=== PATIENT | male | born 1945 | race African-American/Black ===

== ENCOUNTER 2017-11-23 09:07 | Inpatient (IN) | payer OTHER, MEDICAID ==
[~2017-11-23] VITALS: Ht 182.9 cm; Wt 64.1 kg
[2017-11-23] MEDS ORDERED: ASPirin 81 mg TAB PO ONE (09:30)
[2017-11-23 09:57] LABS: Basophils # (auto) 0 uL; Basophils % (auto) 0.4 % (0.0-2.0); Eosinophils # (auto) 0 uL; Eosinophils % (auto) 0.3 % (0.0-7.0); Hematocrit 40.5 % (41.0-53.0); Hemoglobin 13.4 g/dL (13.5-17.5); Lymphocytes # (auto) 1.1 uL; Lymphocytes % (auto) 26.5 % (10.0-50.0); Mean Corpuscular Hemoglobin 27.1 pg (28.0-32.0); Mean Corpuscular Hgb Conc. 33.1 g/dL (32.0-36.0); Mean Corpuscular Volume 81.8 fL (80.0-100.0); Monocytes # (auto) 0.4 uL; Monocytes % (auto) 10.4 % (0.0-12.0); Neutrophils # (auto) 2.7 uL; Neutrophils % (auto) 62.4 % (37.0-80.0); Nucleated Red Blood Cells % 0.1 %; Platelet Count (auto) 364 10^3/uL (140-450); Red Blood Cells 4.95 10^6/uL (4.5-5.90); Red Cell Distribution Width 15.3 % (11.8-14.3); White Blood Cell 4.3 10^3/uL (4.4-10.8)
[2017-11-23 10:20] LABS: Alanine Aminotransferase 17 U/L (16-61); Albumin 3.5 g/dL (3.4-5.0); Alkaline Phosphatase 106 U/L (45-117); Anion Gap 9 (5-15); Aspartate Aminotransferase 14 U/L (15-37); Bilirubin, Total 0.3 mg/dL (0.2-1.0); Blood Urea Nitrogen 12 mg/dL (7-18); Calcium 9.2 mg/dL (8.5-10.1); Carbon Dioxide 25 mmol/L (21-32); Chloride 106 mmol/L (98-107); GFR African American 123 mL/min; GFR Non-African American 102 mL/min; Glucose 154 mg/dL (74-106); Potassium 3.5 mmol/L (3.5-5.1); Sodium 140 mmol/L (136-145); Total Protein 7.8 g/dL (6.4-8.2)
[2017-11-23] MEDS ORDERED: ONDANSETRON HCL 4 MG/2 ML VIAL IV PRN (12:45)
[2017-11-23] MEDS ORDERED: HYDROcodone-ACET 5/325MG TAB PO PRN (12:45)
[2017-11-23] MEDS ORDERED: NITROGLYCERIN 0.4 MG SL TAB SL PRN (12:45)
[2017-11-23] MEDS ORDERED: NITROGLYCERIN 0.2MG/HR TOPICAL PATCH TD ONE (12:45)
[2017-11-23] MEDS ORDERED: MORPHINE SULFATE 4 MG/ML SYR/VIAL IV PRN ×2 (12:45)
[2017-11-23] MEDS ORDERED: NIFE60TA59 PO (13:03)
[2017-11-23] MEDS ORDERED: ENA10T PO (13:03)
[2017-11-23] MEDS ORDERED: BICA50TA7 PO (13:03)
[2017-11-23 13:57] LABS: Cholesterol 145 mg/dL (< 200); HDL Cholesterol 77 mg/dL (40-59); LDL Cholesterol 67 mg/dL (< 100); Triglycerides 68 mg/dL (< 150)
[2017-11-23] MEDS ORDERED: OPTISON 3ml Vial for INJ IV ONE (16:18)
[2017-11-23 16:39] VITALS: BP 128/85
[2017-11-23 22:00] VITALS: BP 105/67
[2017-11-23] MEDS: ATORVASTATIN 20 MG TAB PO SCH (22:00)
[2017-11-23] MEDS: METOPROLOL TARTRATE 25 MG TAB PO SCH (22:00)
[2017-11-24 05:18] VITALS: BP_SYST 120; BP_SYST 121; BP_DIAS 72; BP_DIAS 85
[2017-11-24 05:52] LABS: Basophils # (auto) 0 uL; Basophils % (auto) 0.7 % (0.0-2.0); Eosinophils # (auto) 0 uL; Eosinophils % (auto) 0.7 % (0.0-7.0); Hematocrit 39.6 % (41.0-53.0); Hemoglobin 13.4 g/dL (13.5-17.5); Lymphocytes # (auto) 1.2 uL; Lymphocytes % (auto) 33.3 % (10.0-50.0); Mean Corpuscular Hemoglobin 27.7 pg (28.0-32.0); Mean Corpuscular Hgb Conc. 33.7 g/dL (32.0-36.0); Mean Corpuscular Volume 82.2 fL (80.0-100.0); Monocytes # (auto) 0.4 uL; Monocytes % (auto) 12.4 % (0.0-12.0); Neutrophils # (auto) 1.9 uL; Neutrophils % (auto) 52.9 % (37.0-80.0); Nucleated Red Blood Cells % 0.1 %; Platelet Count (auto) 353 10^3/uL (140-450); Red Blood Cells 4.82 10^6/uL (4.5-5.90); Red Cell Distribution Width 15.6 % (11.8-14.3); White Blood Cell 3.6 10^3/uL (4.4-10.8)
[2017-11-24 06:27] LABS: BUN/Creatinine Ratio 16.7; Calcium 9.6 mg/dL (8.5-10.1); Potassium 3.6 mmol/L (3.5-5.1)
[2017-11-24 07:21] VITALS: BP 118/82
[2017-11-24] MEDS ORDERED: NITROGLYCERIN 0.2MG/HR TOPICAL PATCH TD SCH (10:00)
[2017-11-24] MEDS: ASPirin 81 mg TAB PO SCH (10:08)
[2017-11-24] MEDS: METOPROLOL TARTRATE 25 MG TAB PO SCH (10:08)
[2017-11-24] MEDS: ENALAPRIL MALEATE 2.5 MG TAB PO SCH (10:10)
[2017-11-24 11:30] VITALS: BP 163/90
[2017-11-24] MEDS ORDERED: NIFEdipine ER 30 MG TAB PO ONE (13:15)
[2017-11-24 16:28] VITALS: BP 111/74
[2017-11-24 17:00] VITALS: BP 143/78
[2017-11-24 22:00] VITALS: BP 124/76
[2017-11-24] MEDS: ATORVASTATIN 20 MG TAB PO SCH (22:24)
[2017-11-25 05:21] VITALS: BP 103/70
[2017-11-25 09:00] VITALS: BP 109/78
[2017-11-25] MEDS: ASPirin 81 mg TAB PO SCH (09:47)
[2017-11-25] MEDS ORDERED: NIFEdipine ER 30 MG TAB PO SCH (10:00)
[2017-11-25] MEDS: ENALAPRIL MALEATE 2.5 MG TAB PO SCH (10:00)
[2017-11-25 13:00] VITALS: BP 123/81
[2017-11-25 16:50] VITALS: BP 116/77
[2017-11-25 17:00] VITALS: BP 116/77
== END 2017-11-25 18:27 | disposition home or self-care (01) | DRG 313 ==
LOC: ER 09:07 → TELE 09:08 → TELE-WESTW 18:08
PROVIDERS: ADMIT Internal Medicine; ATTEND Internal Medicine
DX: R07.89 Other chest pain (principal); F12.90 Cannabis use, unspecified, uncomplicated; I10 Essential (primary) hypertension; R73.9 Hyperglycemia, unspecified; I49.3 Ventricular premature depolarization; Z82.49 Family history of ischemic heart disease and other diseases of the circulatory system; Z92.3 Personal history of irradiation; Z90.79 Acquired absence of other genital organ(s); Z85.46 Personal history of malignant neoplasm of prostate; Z95.0 Presence of cardiac pacemaker
CPT/HCPCS: 36415; 71045; 80048; 80053; 80061; 83036; 83735; 83880; 84154; 84484; 85025; 85379; 86141; 93005; 93017; 93306; Q9956

== ENCOUNTER 2020-05-03 12:27 | Inpatient (IN) | payer OTHER, MEDICAID ==
[~2020-05-03] VITALS: Ht 185.4 cm; Wt 71.2 kg
[~2020-05-03 12:27] MED LIST: BICA50TA13 PO; ENAL10TA12 PO; NIFE1TAB30 PO
[2020-05-03] MEDS ORDERED: SODIUM CHLORIDE 0.9% 1,000 ML IVB ONE (12:42)
[2020-05-03] MEDS ORDERED: MORPHINE SULFATE 4 MG/ML SYR/VIAL IV ONE (12:45)
[2020-05-03] MEDS ORDERED: ONDANSETRON HCL 4 MG/2 ML VIAL IV ONE (12:45)
[2020-05-03] MEDS ORDERED: ASPirin 81 mg TAB PO ONE (12:45)
[2020-05-03 13:53] LABS: Basophils # (auto) 0 10 ^3/uL (0-0.2); Basophils % (auto) 0.2 % (0.0-2.0); Eosinophils # (auto) 0 10 ^3/uL (0-0.8); Hematocrit 40.2 % (41.0-53.0); Hemoglobin 13.4 g/dL (13.5-17.5); Lymphocytes # (auto) 0.3 10 ^3/uL (0.4-5.4); Lymphocytes % (auto) 2.9 % (10.0-50.0); Mean Corpuscular Hemoglobin 28.3 pg (28.0-32.0); Mean Corpuscular Hgb Conc. 33.4 g/dL (32.0-36.0); Mean Corpuscular Volume 84.7 fL (80.0-100.0); Monocytes # (auto) 0.4 10 ^3/uL (0-1.3); Monocytes % (auto) 4.1 % (0.0-12.0); Neutrophils # (auto) 9.2 10 ^3/uL (1.6-8.6); Neutrophils % (auto) 92.8 % (37.0-80.0); Platelet Count (auto) 257 10^3/uL (140-450); Red Blood Cells 4.75 10^6/uL (4.5-5.90); Red Cell Distribution Width 14.8 % (11.8-14.3); White Blood Cell 9.9 10^3/uL (4.4-10.8)
[2020-05-03 14:11] LABS: Albumin 3.4 g/dL (3.4-5.0); BUN/Creatinine Ratio 16.1; Calcium 9.1 mg/dL (8.5-10.1); Potassium 3.2 mmol/L (3.5-5.1)
[2020-05-03] MEDS ORDERED: MORPHINE SULF INJ 2 MG/ML SYRINGE 1ML IV PRN ×2 (14:15→14:30)
[2020-05-03] MEDS ORDERED: NITROGLYCERIN 0.4 MG SL TAB SL PRN (14:15)
[2020-05-03 14:16] LABS: Total Protein 7.7 g/dL (6.4-8.2)
[2020-05-03] MEDS ORDERED: ACETAMINOPHEN 500 MG TAB PO PRN (14:30)
[2020-05-03] MEDS ORDERED: ONDANSETRON HCL 4 MG/2 ML VIAL IV PRN (14:30)
[2020-05-03] MEDS ORDERED: LACTULOSE 20Gm/30ML SOLN PO PRN (14:30)
[2020-05-03] MEDS ORDERED: traMADol HCL 50 MG TAB PO PRN (14:30)
[2020-05-03] MEDS ORDERED: TEMAZEPAM 15 MG CAP PO PRN (14:30)
[2020-05-03] MEDS ORDERED: ENOXAPARIN SOD 80 MG/0.8ML SYRINGE SC ONE (15:30)
[2020-05-03] MEDS: metroNIDAZOLE 500MG/100ML 100 ML IV SCH ×2 (16:35→22:31)
[2020-05-03] MEDS ORDERED: ASPI-498 PO (16:49)
[2020-05-03] MEDS ORDERED: HYDR-531 PO (16:49)
[2020-05-03] MEDS ORDERED: TIOTCAP IN (16:49)
[2020-05-03] MEDS ORDERED: ATOR20TA50 PO (16:49)
[2020-05-03] MEDS ORDERED: NAP500T PO (16:49)
--- NOTE | 2020-05-03 16:50 | NUR ---
Telemetry admit from ER [facility] SM[facility],WT admitted to Telemetry unit after SBAR received. Patient oriented to Jeremy toribio RN, unit, room, bed, and unit policies regarding patient care and visiting hours. Patient now on continuous telemetry monitoring, tele box # 29 and telemetry reading on arrival to unit is SB 57. Patient placed on bedside oxygen, weighed by bedscale and encouraged to call if they need something. All questions and concerns addressed, patient verbalized understanding. Note: Patient noted to be aaox4, pleasant and cooperative. Patient ambulatory, no c/o chest pain, nausea, vomiting or diarrhea at this time. Admission assessment done and charted. Discussed with patient plan of care, medications, treatments and safety discussed with patient and oatient verbalized understanding. Will continue to monitor patient.
[2020-05-03] MEDS ORDERED: IBUP200C95 PO (16:51)
[2020-05-03] MEDS ORDERED: MULT-928 PO (16:51)
[2020-05-03 16:58] LABS: Cholesterol 127 mg/dL (< 200)
[2020-05-03 17:01] LABS: HDL Cholesterol 82 mg/dL (40-59); LDL Cholesterol 42 mg/dL (< 100); Triglycerides 58 mg/dL (< 150)
[2020-05-03] MEDS ORDERED: CLOPIDOGREL BISULFATE 75 MG TAB PO ONE (17:15)
[2020-05-03 17:37] VITALS: BP 127/95
[2020-05-03] MEDS ORDERED: POTASSIUM EFFERVESENT TAB 25 MEQ GT ONE (17:45)
[2020-05-03] MEDS: SODIUM CHLORIDE 0.9% 1,000 ML IV SCH (18:21)
--- NOTE | 2020-05-03 19:30 | NUR ---
Opening Shift Note Assumed care of patient, awake and alert. No S/S of distress/SOB or pain. Instructed on POC and to call for assist PRN, will continue to monitor for changes Q1hr and PRN.
--- NOTE | 2020-05-03 20:52 | NUR ---
Lab called regarding critical troponin of 1.090. Pearl Love, cardiology PA, paged as per communication order to call if troponin result trending up. Call back received promptly, updated with patient's status. Received orders to keep patient NPO for a possible procedure in the AM. Communication relayed to the patient. All questions and concerns addressed. Patient verbalized understanding. Care continued.
[2020-05-03 21:00] VITALS: BP 156/105
[2020-05-03] MEDS ORDERED: FAMOTIDINE 20 MG TAB PO SCH (22:00)
[2020-05-03] MEDS ORDERED: ENOXAPARIN SOD 80 MG/0.8ML SYRINGE SC SCH (22:00)
--- NOTE | 2020-05-03 22:27 | NUR ---
IV pump keeps on beeping due to IV access on the AC. New IV access obtained, via clean sterile technique by inserting gauge 20 catheter at right forearm after one attempt. IV secured properly. No trauma to site. Patient tolerated well. Care continued.
[2020-05-03] MEDS: ATORVASTATIN 20 MG TAB PO SCH (22:37)
--- NOTE | 2020-05-03 22:52 | NUR ---
Cardiology HELADIO Love called. NPO orders cancelled at this time. Additional orders received and will be noted. Communication relayed to the patient. All questions and concerns addressed. Patient verbalized understanding. Care continued.
--- NOTE | 2020-05-04 01:34 | NUR ---
Lab called regarding critical troponin of 2.910. Cardiology HELADIO Love paged. Call back received promptly, updated with patient's status. Orders received and will be noted. Communication relayed to the patient. All questions and concerns addressed. Patient verbalized understanding. Care continued.
[2020-05-04] MEDS ORDERED: HEPARIN SODIUM (PORCINE) 5000 UNITS/ML 1ML VIAL IV ONE (01:45)
--- NOTE | 2020-05-04 02:00 | NUR ---
Still waiting for the personal property assessor to draw blood for stat blood draw order. Care continued.
--- NOTE | 2020-05-04 02:30 | NUR ---
Called lab to follow-up blood draw. No answer. Care continued.
--- NOTE | 2020-05-04 03:00 | NUR ---
Irrigation Technician at bedside for blood draw. Care continued.
--- NOTE | 2020-05-04 03:30 | NUR ---
No result yet for blood draw. Called lab, informed that results will released in a few minutes. Care continued.
[2020-05-04 03:40] LABS: Basophils # (auto) 0 10 ^3/uL (0-0.2); Basophils % (auto) 0.2 % (0.0-2.0); Eosinophils # (auto) 0 10 ^3/uL (0-0.8); Hemoglobin 11.9 g/dL (13.5-17.5); Lymphocytes % (auto) 10.6 % (10.0-50.0); Mean Corpuscular Hemoglobin 28.2 pg (28.0-32.0); Mean Corpuscular Hgb Conc. 32.9 g/dL (32.0-36.0); Mean Corpuscular Volume 85.7 fL (80.0-100.0); Monocytes # (auto) 0.7 10 ^3/uL (0-1.3); Neutrophils # (auto) 7.4 10 ^3/uL (1.6-8.6); Neutrophils % (auto) 81.2 % (37.0-80.0); Nucleated Red Blood Cells % 0.1 %; Platelet Count (auto) 199 10^3/uL (140-450); Red Cell Distribution Width 14.8 % (11.8-14.3); White Blood Cell 9.1 10^3/uL (4.4-10.8)
--- NOTE | 2020-05-04 04:00 | NUR ---
Still waiting for PT,INR result. Unable to start Heparin drip. Care continued.
--- NOTE | 2020-05-04 04:16 | NUR ---
No result yet for PT,PTT. Called lab to follow-up for stat PT,PTT,INR result. Spoke to [facility]. Per [facility] it will take another 20 minutes for the result. Unable to start Heparin drip. Care continued.
[2020-05-04 04:18] LABS: INR 1.29 (0.9-1.15); Partial Thromboplastin Time 32.7 sec (23.0-31.2)
--- NOTE | 2020-05-04 04:21 | NUR ---
Received call from lab regarding PT,PTT,INR result. Will start Heparin drip.
[2020-05-04] MEDS: HEPARIN DRIP/D5W 100UNITS/ML 250 ML IV SCH (04:37)
--- NOTE | 2020-05-04 04:37 | NUR ---
Medication explained to patient per protocol. All questions and concerns addressed. Patient verbalized understanding. Heparin drip started at 900 units/hr witnessed by another RN, Phillip. 12 lead Care continued.
[2020-05-04 04:40] VITALS: BP 133/92
[2020-05-04] MEDS: SODIUM CHLORIDE 0.9% 1,000 ML IV SCH ×2 (06:31→12:37)
[2020-05-04] MEDS: metroNIDAZOLE 500MG/100ML 100 ML IV SCH ×3 (06:32→21:58)
[2020-05-04 07:37] LABS: Urine WBC None Seen /hpf (0 - 3)
[2020-05-04 07:52] LABS: Urine Amorphous Crystal FEW /hpf (None Seen); Urine Bacteria FEW /hpf (None Seen); Urine Blood 2+ /uL (Negative); Urine Budding Yeast OCCASIONAL /hpf (None Seen); Urine Mucus FEW (None Seen); Urine Specific Gravity 1.021 (1.001-1.035)
[2020-05-04 08:00] VITALS: BP 126/81
[2020-05-04] MEDS ORDERED: ENOXAPARIN SOD 40 MG/0.4 ML SYRINGE SC SCH (10:00)
[2020-05-04 10:12] VITALS: BP 126/81
[2020-05-04] MEDS: NITROGLYCERIN 0.2MG/HR TOPICAL PATCH TD SCH (10:17)
[2020-05-04] MEDS: CLOPIDOGREL BISULFATE 75 MG TAB PO SCH (10:18)
[2020-05-04] MEDS: ASPirin 81 mg TAB PO SCH (10:18)
[2020-05-04] MEDS: PANTOPRAZOLE 40 MG TAB PO SCH (10:18)
[2020-05-04] MEDS: ENALAPRIL MALEATE 10 MG TAB PO SCH (10:19)
[2020-05-04 11:09] LABS: INR 1.3 (0.9-1.15); Partial Thromboplastin Time 62.6 sec (23.0-31.2)
--- NOTE | 2020-05-04 11:23 | NUR ---
PTT-62.6 NO CHANGE ON HEPARIN DRIP DRIP PER PROTOCOL.
[2020-05-04 12:38] VITALS: BP 128/75
--- NOTE | 2020-05-04 15:03 | NUR ---
PHONED DR. NAVARRO TO INFORM HIM ABOUT CRITICAL TROPONIN 5.150. WAITING MD TO RETURN CALL.
--- NOTE | 2020-05-04 15:20 | NUR ---
CHARGE NURSE GAMAL AND TIRE RECAPPING MACHINE OPERATOR IVANA INFORMED OF TROPONIN 5.[address] NAVARRO TO RETURN CALL.
--- NOTE | 2020-05-04 15:37 | NUR ---
PHONED DR. NAVARRO AND INFORMED HIM OF TROPONIN 5.150, PATIENT ASYMPTOMATIC AND IS ON HEPARIN DRIP. STATED TO CONTINUE WITH THE HEPARIN PROTOCOL.
[2020-05-04 17:00] VITALS: BP 106/66
--- NOTE | 2020-05-04 18:52 | NUR ---
PTT-52.5 No change in heparin drip rate as per protocol.
--- NOTE | 2020-05-04 18:57 | NUR ---
Phoned Dr. Bond and informed him of troponin result 4.78. stated that he did not want any more troponin ordered. No new orders made by .
--- NOTE | 2020-05-04 19:30 | NUR ---
Opening Shift Note Assumed care of patient, awake and alert. No S/S of distress/SOB or pain. Heparin drip currently at 900 units/hr. Instructed on POC and to call for assist PRN, will continue to monitor for changes Q1hr and PRN.
[2020-05-04] MEDS: ATORVASTATIN 20 MG TAB PO SCH (21:58)
[2020-05-05] MEDS: HEPARIN DRIP/D5W 100UNITS/ML 250 ML IV SCH ×2 (00:24→16:57)
--- NOTE | 2020-05-05 00:24 | NUR ---
APTT resulted at 52.8. Per heparin drip protocol, No bolus and no change in rate, witnessed by another RN Phillip. Care continued.
[2020-05-05 01:10] LABS: INR 1.24 (0.9-1.15); Partial Thromboplastin Time 53.5 sec (23.0-31.2)
[2020-05-05 04:59] VITALS: BP 120/79
[2020-05-05 05:05] LABS: Basophils # (auto) 0 10 ^3/uL (0-0.2); Basophils % (auto) 0.3 % (0.0-2.0); Eosinophils # (auto) 0 10 ^3/uL (0-0.8); Eosinophils % (auto) 0.3 % (0.0-7.0); Hematocrit 35.4 % (41.0-53.0); Hemoglobin 11.7 g/dL (13.5-17.5); Lymphocytes # (auto) 1.7 10 ^3/uL (0.4-5.4); Lymphocytes % (auto) 25.5 % (10.0-50.0); Mean Corpuscular Hemoglobin 28.6 pg (28.0-32.0); Mean Corpuscular Hgb Conc. 33.2 g/dL (32.0-36.0); Mean Corpuscular Volume 86.2 fL (80.0-100.0); Monocytes # (auto) 0.7 10 ^3/uL (0-1.3); Monocytes % (auto) 10.9 % (0.0-12.0); Neutrophils # (auto) 4.1 10 ^3/uL (1.6-8.6); Platelet Count (auto) 206 10^3/uL (140-450); Red Cell Distribution Width 14.6 % (11.8-14.3); White Blood Cell 6.5 10^3/uL (4.4-10.8)
[2020-05-05 05:23] LABS: BUN/Creatinine Ratio 10.3; Calcium 8.6 mg/dL (8.5-10.1); Potassium 3.6 mmol/L (3.5-5.1)
[2020-05-05 05:34] LABS: INR 1.25 (0.9-1.15); Partial Thromboplastin Time 50.7 sec (23.0-31.2)
[2020-05-05] MEDS: metroNIDAZOLE 500MG/100ML 100 ML IV SCH (06:20)
[2020-05-05] MEDS: SODIUM CHLORIDE 0.9% 1,000 ML IV SCH ×2 (06:21→10:30)
--- NOTE | 2020-05-05 07:15 | NUR ---
Opening Shift Note Assumed care of patient awake and alert. No S/S of distress/SOB or pain. Updated patient on plan of care. Will continue to monitor for changes Q1hr and PRN. Bed locked in lowest position, HOB elevated at least 30 degrees, side rails up x 2 and call light is within reach.
--- NOTE | 2020-05-05 07:30 | NUR ---
Patient has no complains at this time, no signs of respiratory distress. Heparin drip to remain at 900 units/hr. Per heparin protocol, if APTT within therapeutic range X3, next APTT will be every 24 hours. Report given and patient rounded with oncoming RNAntonio.
[2020-05-05] MEDS: PANTOPRAZOLE 40 MG TAB PO SCH (09:00)
[2020-05-05] MEDS: CLOPIDOGREL BISULFATE 75 MG TAB PO SCH (09:00)
[2020-05-05] MEDS: ASPirin 81 mg TAB PO SCH (09:00)
--- NOTE | 2020-05-05 09:00 | NUR ---
MD ROUNDS ROUNDS WITH DR. VALENCIA. NO NEW ORDERS AT THIS TIME. CONTINUE CARE
[2020-05-05] MEDS: NITROGLYCERIN 0.2MG/HR TOPICAL PATCH TD SCH (09:02)
[2020-05-05] MEDS: ENALAPRIL MALEATE 10 MG TAB PO SCH (09:02)
[2020-05-05 09:15] VITALS: BP 142/97
--- NOTE | 2020-05-05 10:00 | NUR ---
CRITICAL LAB RECEIVED CRITICAL LAB. TROPONIN OF 3.15. IS AWARE.
[2020-05-05 12:51] VITALS: BP 129/82
[2020-05-05 16:25] LABS: INR 1.18 (0.9-1.15)
--- NOTE | 2020-05-05 16:57 | NUR ---
HEPARIN PT INFUSING HEPARIN AT 9ML/HR. PER PROTOCOL INCREASED HEPARIN DRIP BY 2ML FOR A PTT OF 46.0. HEPARIN NOW INFUSING AT 11ML/HR. WITNESS BY YOLANDE WORTHY. WILL CONTINUE TO MONITOR.
[2020-05-05 17:00] VITALS: BP 122/80
--- NOTE | 2020-05-05 19:09 | NUR ---
CLOSING NOTE ENDORSED CARE TO NOC SHIFT RN
[2020-05-05 22:00] VITALS: BP 124/81
[2020-05-05] MEDS: ATORVASTATIN 20 MG TAB PO SCH (22:13)
--- NOTE | 2020-05-05 23:15 | NUR ---
PTT - 62.5. No change to Heparin rate per protocol. Heparin continues at 11ml/hr.
[2020-05-05 23:37] LABS: INR 1.25 (0.9-1.15); Partial Thromboplastin Time 62.5 sec (23.0-31.2)
[2020-05-06] MEDS: SODIUM CHLORIDE 0.9% 1,000 ML IV SCH (03:47)
[2020-05-06 05:00] VITALS: BP 128/77
[2020-05-06] MEDS: HEPARIN DRIP/D5W 100UNITS/ML 250 ML IV SCH (06:39)
[2020-05-06 06:56] LABS: INR 1.32 (0.9-1.15)
--- NOTE | 2020-05-06 07:26 | NUR ---
HEPARIN PTT - 55.0. No change to Heparin rate per protocol. Heparin continues at 11ml/hr.
--- NOTE | 2020-05-06 07:27 | NUR ---
Opening Shift Note Assumed care of patient, awake and alert. No S/S of distress/SOB or pain. Assisted patient with ADLs. Instructed on POC and to call for assist PRN, will continue to monitor for changes Q1hr and PRN. Bed locked in lowest position, HOB elevated at least 30 degrees, side rails up x 3 and call light is within reach.
--- NOTE | 2020-05-06 08:02 | NUR ---
PATIENT TAKEN DOWN TO STATE GAME PROTECTOR FOR PROCEDURE
[2020-05-06] MEDS ORDERED: SODIUM CHL 0.9% 0 ML ONE (08:18)
[2020-05-06] MEDS ORDERED: ANGIOMAX 250 MG VIAL IV ONE (08:18)
[2020-05-06] MEDS ORDERED: MIDAZOLAM HCL 1MG/1ML-2 ML VIAL ONE (08:18)
[2020-05-06] MEDS ORDERED: fentaNYL CITRATE 100 MCG/2 ML VL ONE (08:18)
[2020-05-06] MEDS ORDERED: LIDOCAINE 2%HCL (LOCAL ANESTH.) INJ 20ML MDV ONE (08:19)
[2020-05-06] MEDS ORDERED: IOHEXOL 350 MG/ML 100ML IJ ONE (08:19)
[2020-05-06] MEDS ORDERED: diphenhdrAMINE HCL 50 MG/1 ML VL ONE (08:20)
[2020-05-06 08:28] VITALS: BP 150/108
[2020-05-06] MEDS ORDERED: cloNIDine HCL 0.1 MG TAB PO PRN (09:45)
[2020-05-06] MEDS ORDERED: SACUBITRIL-VALSARTAN 24mg/26mg TAB PO SCH (10:00)
--- NOTE | 2020-05-06 10:15 | NUR ---
PATIENT RETURNED FROM WIRE STRETCHER. NO SIGNS OF DISTRESS AT THIS TIME. RESPIRATIONS EVEN AND UNLABORED. WILL CONTINUE TO MONITOR.
[2020-05-06] MEDS: ASPirin 81 mg TAB PO SCH (10:37)
[2020-05-06] MEDS: ENALAPRIL MALEATE 10 MG TAB PO SCH (10:38)
[2020-05-06] MEDS: PANTOPRAZOLE 40 MG TAB PO SCH (10:38)
[2020-05-06] MEDS: NITROGLYCERIN 0.2MG/HR TOPICAL PATCH TD SCH (10:39)
[2020-05-06 13:00] VITALS: BP 153/119
[2020-05-06] MEDS ORDERED: NIFEdipine ER 30 MG TAB PO ONE (15:00)
[2020-05-06 16:08] VITALS: BP 119/86
--- NOTE | 2020-05-06 16:22 | NUR ---
Pt declined PT mercyal today stating he is sore and would like to wait until tomorrow. Will attempt again.
--- NOTE | 2020-05-06 19:25 | NUR ---
CLOSING NOTE ENDORSED CARE TO DAY SHIFT RN
--- NOTE | 2020-05-06 19:42 | NUR ---
Opening Shift Note Received report and assumed care of patient. Patient is awake and alert. No signs or symptoms of distress noted. Dressing to Right groin is clean, dry and intact. Instructed patient on plan of care and to call for assistance as needed. Will continue to monitor.
[2020-05-06] MEDS: ATORVASTATIN 20 MG TAB PO SCH (21:39)
[2020-05-06 22:00] VITALS: BP 137/99
[2020-05-07 05:00] VITALS: BP 111/88
--- NOTE | 2020-05-07 05:14 | NUR ---
Pain Medication Administration Patient complaining of pain 9/10 to Right groin incision site. Dressing noted to be clean, dry and intact. Patient requesting tramadol to be administered. Educated patient regarding pain medication and pain level, patient verbalized understanding, continues to request tramadol. Will administer pain medication per MD order. Will reassess pain level and will continue to monitor.
--- NOTE | 2020-05-07 06:14 | NUR ---
Pain Level Reassessment Patient's pain level reassessed to be 7/10. Offered patient nonpharmacological interventions. Patient stated " I will be okay". Will continue to monitor.
[2020-05-07 06:42] LABS: Hematocrit 39.8 % (41.0-53.0); Hemoglobin 13.7 g/dL (13.5-17.5); Mean Corpuscular Hemoglobin 28.8 pg (28.0-32.0); Mean Corpuscular Hgb Conc. 34.3 g/dL (32.0-36.0); Mean Corpuscular Volume 83.9 fL (80.0-100.0); Platelet Count (auto) 249 10^3/uL (140-450); Red Blood Cells 4.75 10^6/uL (4.5-5.90); Red Cell Distribution Width 14.3 % (11.8-14.3); White Blood Cell 4.9 10^3/uL (4.4-10.8)
[2020-05-07 06:44] LABS: Band Neutrophils % (manual) 0; Basophils % (manual) 0 (0.0-2.0); Blast Cells 0; Eosinophils % (manual) 0 (0-7); Metamyelocytes % 0; Myelocytes % 0; Promyelocytes % 0; Reactive Lymphocytes 0
[2020-05-07 06:57] LABS: BUN/Creatinine Ratio 10.7; Calcium 9.1 mg/dL (8.5-10.1); Potassium 3.1 mmol/L (3.5-5.1)
[2020-05-07 07:23] LABS: Lymphocytes % (manual) 35 (10.0-50.0); Monocytes % (manual) 7 (0-12)
[2020-05-07 08:25] VITALS: BP 111/38
--- NOTE | 2020-05-07 08:30 | NUR ---
OPENING NOTE ASSUMED CARE OF PATIENT, WILL CONTINUE TO FOLLOW PLAN OF CARE. PATIENT IS SCHEDULED TO BE DISCHARGED TODAY. UPON ASSESSMENT, LEFT GROIN SURGICAL SITE APPEARS CLEAN AND DRY. PATIENT REPORTS NO PAIN AT THIS TIME AND IS RESTING COMFORTABLY. WILL CONTINUE TO MONITOR THE PATIENT.
[2020-05-07] MEDS ORDERED: POTASSIUM CHL 20 Meq TABLET PO ONE (09:30)
[2020-05-07 09:34] VITALS: BP 154/87
--- NOTE | 2020-05-07 09:35 | NUR ---
MD WAS AT BEDSIDE - NOTIFIED MD ON POTASSIUM LEVEL DR VALENCIA WAS AT BEDSIDE. POC WAS DISCUSSED WITH THIS RN. MD NOTIFIED OF RECENT POTASSIUM LEVEL. MD VERBALIZED UNDERSTANDING. ORDER RECEIVED AND READ BACK TO VERIFY.
[2020-05-07] MEDS: PANTOPRAZOLE 40 MG TAB PO SCH (09:52)
[2020-05-07] MEDS: ASPirin 81 mg TAB PO SCH (09:52)
[2020-05-07] MEDS ORDERED: NIFEdipine ER 30 MG TAB PO SCH (10:00)
--- NOTE | 2020-05-07 12:34 | NUR ---
Discharge Patient discharged to home. Please follow up with your primary care physician Dr. Felipe Alfonso. Patient instructed to make follow up appointment upon discharge. Attempts were made to contact PCP with no answer. Patient educated on when to seek medical help, post op care, instructions, diet, medication administration, schedule and side effects. Patient verbalized education understanding. IV removed with aseptic technique, catheter intact. Dressing applied. Patient tolerated well, no trauma to site. Telemonitor removed and returned. Patient reports having all personal belongings. Right groin dressing clean, dry and intact with no bleeding or swelling noted. Patient refused wheelchair. Patient ambulated with a steady gait to hospital lobby accompanied by staff member. Respirations even and unlabored, no distress noted.
[2020-05-07 12:50] VITALS: BP 137/97
[2020-05-07] MEDS ORDERED: ENALAPRIL MALEATE 10 MG TAB PO SCH (23:00)
== END 2020-05-07 12:34 | disposition home or self-care (01) | DRG 280 ==
LOC: ER 12:27 → TELE 12:28 → TELE-CENTR 17:09
PROVIDERS: ADMIT Internal Medicine; ATTEND Internal Medicine
PROC: 4A023N7 Measurement of Cardiac Sampling and Pressure, Left Heart, Percutaneous Approach (ICD-10-PCS; principal; 2020-05-06)
PROC: B2111ZZ Fluoroscopy of Multiple Coronary Arteries using Low Osmolar Contrast (ICD-10-PCS; 2020-05-06)
PROC: B2151ZZ Fluoroscopy of Left Heart using Low Osmolar Contrast (ICD-10-PCS; 2020-05-06)
PROC: B41C1ZZ Fluoroscopy of Pelvic Arteries using Low Osmolar Contrast (ICD-10-PCS; 2020-05-06)
DX: I16.9 Hypertensive crisis, unspecified (principal); I21.A1 Myocardial infarction type 2; I50.33 Acute on chronic diastolic (congestive) heart failure; E87.6 Hypokalemia; I11.0 Hypertensive heart disease with heart failure; E78.5 Hyperlipidemia, unspecified; R00.1 Bradycardia, unspecified; R19.7 Diarrhea, unspecified; E11.9 Type 2 diabetes mellitus without complications; J44.9 Chronic obstructive pulmonary disease, unspecified; Z80.9 Family history of malignant neoplasm, unspecified; Z82.49 Family history of ischemic heart disease and other diseases of the circulatory system; Z85.46 Personal history of malignant neoplasm of prostate; Z92.21 Personal history of antineoplastic chemotherapy
CPT/HCPCS: 36415; 71045; 75710; 80048; 80053; 80061; 81001; 82150; 82550; 83690; 83735; 83880; 84443; 84484; 85007; 85025; 85027; 85379; 85610; 85652; 85730; 86850; 86900; 86901; 87045; 87427; 87493; 93005; 93306; 93458; 97163; 99152; G0378; J2250; J2405; J3490